=== PATIENT | female | born 1990 | race American Indian/Alaskan Native ===

== ENCOUNTER 2018-05-14 23:25 | Emergency (ER) | payer SELFPAY ==
[2018-05-14 23:48] VITALS: O2SAT 100
[2018-05-15 01:26] LABS: BASO # 0.1 K/uL (0.0-0.2); BASO % 0.8 % (0.0-2.0); EOS # 0.1 K/uL (0.0-0.7); EOS % 1.2 % (0.0-4.0); HEMOGLOBIN 11.1 g/dL (11.0-16.0); LYMPH # 3.1 K/uL (1.0-4.3); LYMPH % 38.2 % (20.0-40.0); MEAN CELL VOLUME 89.3 fL (81.0-99.0); MEAN CORPUSCULAR HEMOGLOBIN 28.9 pg (27.0-31.0); MEAN CORPUSCULAR HGB CONC 32.4 g/dL (33.0-37.0); MEAN PLATELET VOLUME 8.1 fL (7.2-11.7); MONO # 0.6 K/uL (0.0-0.8); MONO % 6.9 % (0.0-10.0); NEUT # 4.3 K/uL (1.8-7.0); NEUT % 52.9 % (50.0-75.0); RBC 3.83 Mil/uL (3.80-5.20); RED CELL DISTRIBUTION WIDTH 14.6 % (11.5-14.5); WHITE BLOOD COUNT 8.1 K/uL (4.8-10.8)
[2018-05-15 01:34] LABS: INR 1.2; PROTHROMBIN TIME 12.8 SECONDS (9.7-12.2)
[2018-05-15 01:39] LABS: ALB/GLOB RATIO 1.5 (1.0-2.1); ALBUMIN 4.1 g/dL (3.5-5.0); ALT/SGPT 9 U/L (9-52); AST/SGOT 21 U/L (14-36); BLOOD UREA NITROGEN 9 mg/dL (7-17); CALCIUM 8.6 mg/dl (8.6-10.4); GFR NON-AFRICAN AMERICAN > 60
--- NOTE | 2018-05-15 01:42 | C.PDOC ---
History Of Present Illness 28 yr old F p/w suprapubic pain and spotting. She notes that her LMP was Mar 07 and that she had x2 episodes of sharp suprapubic pain today. She denies any current pain. Does not want any pain meds at this time. She notes mild spotting today. She is concerned she may be . She denies any fall or trauma. No headache, fever, chills or night sweats. No constipation or diarrhea. No dark or bloody stool. No rashes. No other complaints. Time Seen by Provider: 05/15/18 00:16 Chief Complaint (Nursing): Female Genitourinary Past Medical History Vital Signs: Last Vital Signs Temp 98.4 F 05/14/18 23:43 Pulse 72 05/14/18 23:43 Resp 22 05/14/18 23:43 BP 126/74 05/14/18 23:43 Pulse Ox 100 05/14/18 23:43 Family History: States: Unknown Family Hx - Social History Hx Alcohol Use: No Hx Substance Use: No - Immunization History Hx Tetanus Toxoid Vaccination: No Hx Influenza Vaccination: No Hx Pneumococcal Vaccination: No Review Of Systems Constitutional: Negative for: Fever, Chills, Sweats Eyes: Negative for: Pain, Vision Change ENT: Negative for: Ear Pain, Ear Discharge, Nose Congestion, Mouth Pain Cardiovascular: Negative for: Chest Pain, Palpitations Respiratory: Negative for: Cough, Shortness of Breath Gastrointestinal: Positive for: Abdominal Pain (suprapubic). Negative for: Nausea, Vomiting, Diarrhea, Melena Genitourinary: Positive for: Vaginal Bleeding. Negative for: Dysuria, Frequency, Hematuria, Vaginal Discharge, Rash Musculoskeletal: Negative for: Neck Pain Skin: Negative for: Rash, Lesions Neurological: Negative for: Weakness Physical Exam - Physical Exam Appears: Well, Non-toxic Skin: Normal Color, Warm, Dry Eye(s): bilateral: Normal Inspection, PERRL, EOMI Nose: Normal Oral Mucosa: Moist Tongue: Normal Appearing Teeth: Normal Dentition Gingiva: Normal Appearing Throat: Normal Neck: Normal, Supple, Other (no meningeal signs) Cardiovascular: Rhythm Regular Respiratory: Normal Breath Sounds Gastrointestinal/Abdominal: Normal Exam Back: Normal Inspection, No CVA Tenderness, No Vertebral Tenderness Extremity: Normal ROM Neurological/Psych: Oriented x3, Normal Speech, Normal Cognition ED Course And Treatment - Laboratory Results Result Diagrams: 05/15/18 01:22 05/15/18 01:22 Lab Results: PT 12.8 SECONDS (9.7-12.2) H 05/15/18 01:22 INR 1.2 05/15/18 01:22 APTT 27 SECONDS (21-34) 05/15/18 01:22 O2 Sat by Pulse Oximetry: 100 Medical Decision Making Medical Decision Makin yr old F p/w suprapubic abd pain w/ our urinary complaints. Concern for per pt. No back pain. No trauma or fall. No rash. Likely threatened ab Pending imaging and labs. labs largely unremarkable BHCG 58K US w/ single live IUP. Cervix closed threatened AB. Pending urine 0421 tolerating clears well pt endorses she does not want to wait to give urine and wants to leave. I stressed possible UTI. Pt notes she still wants to leave. given no UA will treat empirically for UTI. pt is agreeable to plan. Given return indications and followup. Stressed to pt to f/u w/ obgyn marco regarding threatened AB and possible uti Disposition - Disposition Referrals: Denise De La Torre DO [Staff Provider] - [facility] [Outside] [facility] [Outside] [facility] [Outside] [facility] [Outside] Disposition: HOME/ ROUTINE Disposition Time: 03:42 Condition: GOOD Additional Instructions: HARLEY BATISTA, thank you for letting us take care of you today. Your provider was Mor Mathis and you were treated for VAGINAL BLEED. The emergency medical care you received today was directed at your acute symptoms. If you were prescribed any medication, please fill it and take as directed. It may take several days for your symptoms to resolve. Return to the Emergency Department if your symptoms worsen, do not improve, or if you have any other problems. Please contact your doctor or call one of the physicians/clinics you have been referred to that are listed on the Patient Visit Information form that is included in your discharge packet. Bring any paperwork you were given at discharge with you along with any medications you are taking to your follow up visit. Our treatment cannot replace ongoing medical care by a primary care provider outside of the emergency department. [facility] you [facility] your care today. If you had an X-Ray or CT scan: A Radiologist will review the ED reading if any change in treatment is needed we will contact you. If you had a blood, urine, or wound culture: It will take several days for the results, if any change in treatment is needed we will contact you. If you had an STI test: It will take 48 hours for the results. Please call after 1 week if you have not heard back. Prescriptions: Nitrofurantoin Macrocrystal [Nitrofurantoin] 100 mg PO BID 5 Days #10 capsule Forms: [employer] (Spanish) - Clinical Impression Clinical Impression: Threatened , Possible urinary tract infection
[2018-05-15 05:06] VITALS: BP 120/76; PULSE 58; RESP 18; TEMP 98.6
[2018-05-15 05:11] LABS: SQUAMOUS EPITHIAL 18 /hpf (0-5); URINE BACTERIA RARE (<OCC); URINE BILIRUBIN NEGATIVE (NEGATIVE); URINE BLOOD NEGATIVE (NEGATIVE); URINE CLARITY Clear (Clear); URINE COLOR Yellow (YELLOW); URINE GLUCOSE (UA) NORMAL (Normal); URINE LEUKOCYTE ESTERASE 1+ Leu/uL (Negative); URINE PROTEIN 1+ mg/dL (NEGATIVE); URINE UROBILINOGEN NORMAL mg/dL (0.2-1.0)
--- NOTE | 2018-05-15 10:30 | US ---
Date of service: 05/15/18 Indication: vaginal bleeding Comparison: None available Technique: Transvaginal pelvic ultrasound Findings: The uterus measures approximately 11.0 x 6.0 x 7.2 cm. Anteverted. Cervix length measures approximately 4.2 cm. There is a single intrauterine fetus present. The gestational sac measures 3.5 cm and is compatible with a gestational age of 8 weeks 4 days. The crown-rump length measures 3.4 cm and is compatible with a gestational age of 10 weeks 2 days. There is heart motion which measured 165.9 BPM. Evidence of 0.7 x 0.5 x 0.7 cm subchorionic hemorrhage. The right ovary measures 3.3 x 2.2 x 3.5 cm and contains 2.2 x 1.6 x 2.3 cm probable corpus luteal cyst. The left ovary measures 2.2 x 1.2 x 2.6 cm. Blood flow was demonstrated to both ovaries. Impression: Live single intrauterine with estimated gestational age 8 weeks 4 days by gestational sac calculation and 10 weeks 2 days by crown-rump length calculation. heart rate 165.9 bpm. 0.7 x 0.5 x 0.7 cm subchorionic hemorrhage. 2.2 x 1.6 x 2.3 cm probable right corpus luteal cyst. Advise an anomaly screen at 16-18 weeks gestational age Preliminary impression was provided by MARIA E Elias
== END 2018-05-15 05:39 | disposition home or self-care (01) ==
LOC: C.ER 23:25
DX: O20.0 Threatened abortion (principal); Z3A.10 10 weeks gestation of pregnancy